=== PATIENT | female | born 1945 | race Caucasian/White ===

== ENCOUNTER 2022-08-13 14:36 | Emergency (ER) | payer MEDICARE, BC, SELFPAY ==
[2022-08-13] VITALS (8 sets, daily range): BP systolic 130–179; BP diastolic 73–106; PULSE 48–60; RESP 12–18; TEMP 36.7; O2SAT 93–100; BMI 24.3
--- NOTE | 2022-08-13 15:57 | ED.GENADULT ---
HPI - General Adult General Time Seen by Provider: 15:58 Date Seen: 08/13/22 Chief complaint: Dizziness/Vertigo Stated complaint: Chest pain Time Seen by Provider: 08/13/22 15:36 Source: patient and RN notes reviewed Mode of arrival: ambulatory Limitations: no limitations History of Present Illness HPI narrative: This 77-year-old female is ambulatory in the ED of her own accord after being referred from clinic with episode of chest pain early this morning. Patient suffers from chronic imbalance/dizziness issues. About 4-5 years ago it started about 4-5 years ago with vertigo. It is more often to chronic imbalance and we will wax and wane. Today she felt more balanced and wondered if it could have to do with her blood pressure or any relation to that. She called the clinic and spoke with the triage nurse. Triage nurse was asking some questions and she did have a little sense of burning chest discomfort this morning for maybe about 5-10 minutes. She had traveled 6 hours by car back from [facility] last week. With those 2 findings the triage nurse requested that she come to the ER. There has been no further pain. No respiratory symptoms. As far as neurologic changes, no visual changes, no numbness tingling weakness, no falls. It is not a spinning sensation currently. She states she has went to Cardiology[facility]. She states she has had multiple workups for this prior. Related Data Home Medications Medication Instructions Recorded Confirmed No Known Home Medications 08/13/22 08/13/22 Allergies Allergy/AdvReac Type Severity Reaction Status Date / Time No Known Drug Allergies Allergy Verified 08/13/22 14:44 Review of Systems Status of ROS: Reports: 10 or more systems reviewed and unremarkable except as noted in History and below PFSH PFS Social History Smoking Status: Never smoker Do you use any of these nicotine containing products: None Second hand tobacco smoke exposure: No How often do you have a drink containing alcohol: 4 or more times a week AUDIT-C Alcohol total score: 4 Non-prescribed substance use: denies use Exam Const: Vital Signs, click to edit/add: Vital Signs - 24 hr 08/13/22 14:39 08/13/22 15:44 08/13/22 16:20 Temperature 98.0 F Pulse Rate [Pulse Oximeter] 60 54 L Respiratory Rate 18 Blood Pressure [Le ft Upper Arm] 154/84 H Blood Pressure [Ri ght Upper Arm] 179/83 H Pulse Oximetry 100 98 96 Oxygen Delivery Me thod Room Air Room Air Documenting provider has reviewed patient's vital signs: yes Common normals: no apparent distress, average body habitus, oriented x3, no limitations, healthy appearing, alert and well nourished General appearance: cooperative, comfortable and well kempt HENMT: Common normals: normocephalic, head/scalp atraumatic, hearing grossly normal bilaterally, external ears normal, EAC's normal, TM's normal bilaterally, external nose normal, nasal mucous membranes and turbinates normal, moist oral mucous membranes, oropharynx normal, dentition normal and gingiva normal Head and scalp: normocephalic and atraumatic Nose: external nose normal and nasal mucous membranes and turbinates normal External ear: external ears normal External auditory canal: EAC's normal Tympanic membrane: TM's normal bilaterally Eye: Common normals: PERRL, EOMs intact bilaterally, conjunctivae normal and no scleral icterus Conjunctiva: conjunctiva(e) normal Pupil: PERRL Neck & C-Spine: Common normals: full ROM, no lymphadenopathy, supple, no meningeal signs, no JVD, thyroid normal and no carotid bruits Thyroid: thyroid normal Resp: Common normals: normal respiratory effort, no retractions, no use of accessory muscles and clear to auscultation bilaterally Auscultation: clear to auscultation bilaterally Cardio: Common normals: no JVD, regular rate, regular rhythm, S1 normal heart sound, S2 normal heart sound, no gallops, no clicks, no murmurs and no rub Rate: regular rate Rhythm: regular rhythm Heart sounds: S1 normal and S2 normal GI: Common normals: Normal to inspection, nondistended, normoactive bowel sounds present, soft to palpation, non-tender, no hepatosplenomegaly and no masses Palpation: soft and no hepatosplenomegaly Extremity: Common normals: normal to inspection, full ROM, normal capillary refill, no joint enlargement, no clubbing, cyanosis or edema, no calf tenderness and no pedal edema Neuro: Julius Coma Scale: document GCS findings [place] coma scale eye opening: Spontaneous (4) Julius coma scale verbal response: Orientated (5) Julius coma scale motor response: Obey commands (6) [place] coma scale total score: 15 Common normals: oriented x3, CN's II-XII intact bilaterally, moves all extremities, no focal motor deficits, no sensory deficits noted and gait normal Sensorium/orientation: alert Meningeal signs: no meningeal signs Coordination/balance: [id number] test normal Speech: speech normal Coordination: [id number] test normal Psych: Appearance: well kempt Course Course Hospital Course: Did discuss with patient that we will certainly do a troponin and D-dimer. She understands if the D-dimer is elevated to need chest CT PE protocol. Otherwise will do other basic blood work. As far as her chronic dizziness/imbalance, there is nothing new or focal about her neurologic exam. Do not feel that there is anything beneficial to add in workup in the ER today. Reevaluation(s) Reevaluation #1: Reviewed with patient that her laboratory analysis as very reassuring. D-dimer and troponin are normal. Given that her pain happened hours ago and was brief this morning, has not reoccurred. I think she is fine to follow up outpatient. Time: 18:10 Vital Signs Vital signs: Initial Vital Signs Temperature 98.0 F 08/13/22 14:39 Temperature Source Temporal Artery Scan 08/13/22 14:39 Pulse Rate 60 08/13/22 14:39 Respiratory Rate 18 08/13/22 14:39 Blood Pressure 179/83 H 08/13/22 14:39 Blood Pressure Mean 115 08/13/22 14:39 Blood Pressure Position Sitting 08/13/22 14:39 Pulse Oximetry 100 08/13/22 14:39 Oxygen Delivery Method 08/13/22 14:39 Vital Signs Temperature 98.0 F 08/13/22 14:39 Pulse Rate 60 08/13/22 14:39 Respiratory Rate 18 08/13/22 14:39 Blood Pressure 179/83 H 08/13/22 14:39 Pulse Oximetry 100 08/13/22 14:39 Oxygen Delivery Method 08/13/22 14:39 Temperature 98.0 F 08/13/22 14:39 Pulse Rate 54 L 08/13/22 15:44 Respiratory Rate 18 08/13/22 14:39 Blood Pressure 154/84 H 08/13/22 15:44 Pulse Oximetry 96 08/13/22 16:20 Oxygen Delivery Method 08/13/22 15:44 Medical Decision Making Lab Data Lab results reviewed: Yes I reviewed the patient's lab results Labs: Lab Results 08/13/22 08/13/22 08/13/22 Range/Units 16:20 16:20 16:20 WBC 4.71 (4.50-11.00) K/uL RBC 4.67 (4.00-5.20) m/uL Hgb 15.1 (12.0-16.0) gm/dL Hct 44.8 (33.0-51.0) % MCV 96 (80-100) fL MCH 32 (26-34) pg MCHC 34 (32-36) gm/dL RDW Coeff of [place] 11.8 (11.5-15.5) % Plt Count 278 (140-440) K/uL Neut % (Auto) 75.1 H (42.0-72.0) % Lymph % (Auto) 16.3 L (20-44) % Barton % (Auto) 7.4 (0.0-11.0) % Eos % (Auto) 0.8 (0.0-7.0) % Baso % (Auto) 0.2 (0.0-3.0) % Neut # (Auto) 3.50 (1.7-7.0) K/uL Lymph # (Auto) 0.80 L (0.90-2.90) K/uL Barton # (Auto) 0.30 (0.00-0.90) K/UL Eos # (Auto) 0.04 (0.00-0.50) K/uL Baso # (Auto) 0.01 (0.00-0.30) K/uL Abs Immat Gran (auto) 0.01 (0.00-0.30) K/uL D-Dimer Quant (PE/DVT) 0.32 (0.00-0.50) ug/ml Sodium 138 (135-149) mmol/L Potassium 4.3 (3.6-5.1) mmol/L Chloride 105 (96-114) mmol/L Carbon Dioxide 24 (20-32) mmol/L BUN 15 (7-30) mg/dL Creatinine 0.6 (0.5-1.5) mg/dL Estimated Creat Clear 48.28 Estimated GFR 93 ml/min Glucose 95 (60-115) mg/dL Calcium 9.3 (8.4-10.6) mg/dL Magnesium 2.1 (1.5-2.6) mg/dL Total Bilirubin 0.6 (0.1-1.5) mg/dL AST 28 (12-35) U/L ALT 18 (4-35) U/L Alkaline Phosphatase 77 (40-150) U/L C-Reactive Protein < 0.5 L (0.5-1.0) mg/dL NT-Pro-B Natriuret Pep 178 (0-450) PG/mL Total Protein 7.0 (6.0-8.3) g/dL Albumin 4.4 (3.3-5.0) g/dL POC Troponin I (0.01-0.04) ng/ml 08/13/22 Range/Units 16:20 WBC (4.50-11.00) K/uL RBC (4.00-5.20) m/uL Hgb (12.0-16.0) gm/dL Hct (33.0-51.0) % MCV (80-100) fL MCH (26-34) pg MCHC (32-36) gm/dL RDW Coeff of Devon (11.5-15.5) % Plt Count (140-440) K/uL Neut % (Auto) (42.0-72.0) % Lymph % (Auto) (20-44) % Barton % (Auto) (0.0-11.0) % Eos % (Auto) (0.0-7.0) % Baso % (Auto) (0.0-3.0) % Neut # (Auto) (1.7-7.0) K/uL Lymph # (Auto) (0.90-2.90) K/uL Barton # (Auto) (0.00-0.90) K/UL Eos # (Auto) (0.00-0.50) K/uL Baso # (Auto) (0.00-0.30) K/uL Abs Immat Gran (auto) (0.00-0.30) K/uL D-Dimer Quant (PE/DVT) (0.00-0.50) ug/ml Sodium (135-149) mmol/L Potassium (3.6-5.1) mmol/L Chloride (96-114) mmol/L Carbon Dioxide (20-32) mmol/L BUN (7-30) mg/dL Creatinine (0.5-1.5) mg/dL Estimated Creat Clear Estimated GFR ml/min Glucose (60-115) mg/dL Calcium (8.4-10.6) mg/dL Magnesium (1.5-2.6) mg/dL Total Bilirubin (0.1-1.5) mg/dL AST (12-35) U/L ALT (4-35) U/L Alkaline Phosphatase (40-150) U/L C-Reactive Protein (0.5-1.0) mg/dL NT-Pro-B Natriuret Pep (0-450) PG/mL Total Protein (6.0-8.3) g/dL Albumin (3.3-5.0) g/dL POC Troponin I 0.00 L (0.01-0.04) ng/ml Imaging Data Chest x-ray: Attestation: I have reviewed the pertinent imaging results. My impression: My preliminary review, I see no acute cardiopulmonary abnormality on this portable chest x-ray. Radiologist's impression: Patient: EVANS MENSAH Facility:?[facility] Patient ID:?[id number] Site Patient ID:?[id number]. Site :?[id number] Study:?XRay Chest 1 VIEW PORTABLE-08/13/2022 4:48:02 PM Ordering Physician:Kirill Camacho Final Report: INDICATION: Chest pain. TECHNIQUE: Chest 1 views. COMPARISON: 03/27/2014. FINDINGS: Cardiovascular and mediastinum: Normal heart size. Tortuous and atherosclerotic thoracic aorta. Lungs and pleural spaces: Lungs are clear. No consolidation, pleural effusion, or pneumothorax. Unchanged calcified granuloma in the right midlung Bones and soft tissues: No significant findings. IMPRESSION: No evidence of an acute pulmonary process. Dictated by Chuy Astorga MD @ 08/13/2022 5:42:40 PM (Electronic Signature) ECG Data Attestation: I personally reviewed and interpreted this ECG as follows: (Sinus bradycardia, 53 beats per minute. Incomplete right bundle branch block. QT corrected 437 milliseconds.) Discharge Plan Discharge Clinical Impression: Discomfort in chest Condition: Stable Instructions: Chest Pain (ED) Additional Instructions: I a request that she get a follow-up appointment with your primary care provider as soon as you are able to, preferably within the next week. Review this brief episode of chest discomfort. You can further discuss your chronic dizziness/imbalance with him as well. If you have not done any physical therapy recently for your dizziness/balance, would consider trying that again. Otherwise, should you develop return of chest pain, have any difficulty breathing/shortness of breath, have further concerns or issues in the interim, please seek re-evaluation in the ER. Activity Level: Activity as Tolerated Discharge Diet: Regular Prescriptions: No Action No Known Home Medications Follow Up/Referrals: Amber Lopez MD [Primary Care Provider] - Stand Alone Forms: [facility] Info Instructions
--- NOTE | 2022-08-13 16:10 | CRLHL7_ITS ---
For Patients: As a result of the Cures Act, medical imaging exams and procedure reports are released immediately into your electronic medical record. You may view this report before your referring provider. If you have questions, please contact your health care provider. INDICATION: Chest pain. TECHNIQUE: Chest 1 views. COMPARISON: 03/27/2014. FINDINGS: Cardiovascular and mediastinum: Normal heart size. Tortuous and atherosclerotic thoracic aorta. Lungs and pleural spaces: Lungs are clear. No consolidation, pleural effusion, or pneumothorax. Unchanged calcified granuloma in the right midlung Bones and soft tissues: No significant findings. IMPRESSION: No evidence of an acute pulmonary process. Dictated by Chuy Astorga MD @ 08/13/2022 5:42:40 PM (Electronically Signed)
[2022-08-13 16:40] LABS: Basophils Absolute Auto 0.01 K/uL (0.00-0.30); Basophils Percent Auto 0.2 % (0.0-3.0); Eosinophils Absolute Auto 0.04 K/uL (0.00-0.50); Eosinophils Percent Auto 0.8 % (0.0-7.0); Hematocrit 44.8 % (33.0-51.0); Hemoglobin* 15.1 gm/dL (12.0-16.0); Immature Granulocytes Abs Auto 0.01 K/uL (0.00-0.30); Lymphocytes Percent Auto 16.3 % (20-44); Mean Corpuscular HGB Conc 34 gm/dL (32-36); Mean Corpuscular Hemoglobin 32 pg (26-34); Mean Corpuscular Volume 96 fL (80-100); Monocytes Percent Auto 7.4 % (0.0-11.0); Neutrophils Percent Auto 75.1 % (42.0-72.0); Platelet Count* 278 K/uL (140-440); RDW Coefficient of Variation % 11.8 % (11.5-15.5); Red Blood Count 4.67 m/uL (4.00-5.20); White Blood Count* 4.71 K/uL (4.50-11.00)
[2022-08-13 17:00] LABS: D Dimer Quantitative* 0.32 ug/ml (0.00-0.50)
[2022-08-13 17:02] LABS: Albumin* 4.4 g/dL (3.3-5.0); Chloride* 105 mmol/L (96-114)
[2022-08-13 17:03] LABS: Potassium* 4.3 mmol/L (3.6-5.1); Sodium* 138 mmol/L (135-149)
[2022-08-13 17:05] LABS: Bilirubin Total* 0.6 mg/dL (0.1-1.5); Carbon Dioxide* 24 mmol/L (20-32); Creatinine* 0.6 mg/dL (0.5-1.5); Est. Creatinine Clearance* 48.28; Estimated Glomerular Filt Rate 93 ml/min
[2022-08-13 17:06] LABS: Alanine Aminotransferase* 18 U/L (4-35); Alkaline Phosphatase* 77 U/L (40-150); Aspartate Amino Transferase* 28 U/L (12-35); Blood Urea Nitrogen* 15 mg/dL (7-30)
[2022-08-13 17:07] LABS: Calcium* 9.3 mg/dL (8.4-10.6); Glucose* 95 mg/dL (60-115); Magnesium* 2.1 mg/dL (1.5-2.6); Slide Review Reflex No
[2022-08-13 17:15] LABS: NT Pro B Type NatriureticPept* 178 PG/mL (0-450)
[2022-08-13 17:29] LABS: C Reactive Protein* < 0.5 mg/dL (0.5-1.0)
== END 2022-08-13 18:26 | disposition home or self-care (01) ==
PROVIDERS: Emergency Provider Family Medicine; PCP Family Medicine
DX: R07.9 Chest pain, unspecified (principal); R42 Dizziness and giddiness; R26.89 Other abnormalities of gait and mobility
CPT/HCPCS: 36415; 71045; 80053; 83735; 83880; 84484; 85025; 85379; 86140; 93005; 94761; 99284

== ENCOUNTER 2024-11-16 14:22 | Emergency (ER) | payer MEDICARE, BC, SELFPAY ==
[2024-11-16] VITALS (10 sets, daily range): BP systolic 180–196; BP diastolic 78–101; PULSE 56–67; RESP 18; TEMP 36.3; O2SAT 91–97
--- NOTE | 2024-11-16 15:05 | CRLHL7_ITS ---
For Patients: As a result of the Century Cures Act, medical imaging exams and procedure reports are released immediately into your electronic medical record. You may view this report before your referring provider. If you have questions, please contact your health care provider. INDICATION: Headache. TECHNIQUE: CTA head with contrast bolus tracking, 3D angiographic rendering using maximum intensity projection (MIP) and images permanently archived. FINDINGS: There is scattered intracranial atherosclerotic disease. There is normal opacification of the intracranial vasculature. There is no large vessel occlusion. No aneurysm is identified. IMPRESSION: Unremarkable head CTA. Please note that all CT scans at this facility use dose modulation, iterative reconstruction, and/or weight-based dosing when appropriate to reduce radiation dose to as low as reasonably achievable. Dictated by Janes Mcknight MD @ 11/17/2024 6:21:54 AM (Electronically Signed)
--- NOTE | 2024-11-16 15:05 | CRLHL7_ITS ---
For Patients: As a result of the Century Cures Act, medical imaging exams and procedure reports are released immediately into your electronic medical record. You may view this report before your referring provider. If you have questions, please contact your health care provider. INDICATION: Headache. TECHNIQUE: CTA neck with contrast bolus tracking, 3D angiographic rendering using maximum intensity projection (MIP) and images permanently archived. FINDINGS: There is minor carotid atherosclerosis. The internal carotid arteries are tortuous and redundant and contain areas of ectasia and beaded appearance consistent with fibromuscular dysplasia. There is no significant carotid artery stenosis or dissection. 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 There is no significant left vertebral artery stenosis or dissection; the left vertebral artery is markedly dominant. The soft tissues of the neck are within normal limits. Advanced degenerative changes are noted in the cervical spine. IMPRESSION: No significant carotid or vertebral artery stenosis or dissection (with exception of diminutive right vertebral artery that is functionally occluded) Please note that all CT scans at this facility use dose modulation, iterative reconstruction, and/or weight-based dosing when appropriate to reduce radiation dose to as low as reasonably achievable. Dictated by Janes Mcknight MD @ 11/17/2024 6:27:57 AM (Electronically Signed)
--- NOTE | 2024-11-16 15:05 | CRLHL7_ITS ---
For Patients: As a result of the Century Cures Act, medical imaging exams and procedure reports are released immediately into your electronic medical record. You may view this report before your referring provider. If you have questions, please contact your health care provider. TECHNIQUE: Multiplanar CT examination of the head was performed without the use of intravenous contrast. INDICATION: Occipital headache. COMPARISON: MR brain 05/30/2019. 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 No loss of garcia-white differentiation to suggest recent territorial infarct. No intracranial hemorrhage, abnormal extra-axial fluid collection, hydrocephalus or midline shift. The ventricles and cerebral sulci are normal in caliber. The basal cisterns are patent. The paranasal sinuses and mastoid air cells remain clear. The orbits and calvarium are unremarkable. The cerebellar tonsils are normal position. IMPRESSION: 1. No acute intracranial findings. 2. 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 Please note that all CT scans at this facility use dose modulation, iterative reconstruction, and/or weight-based dosing when appropriate to reduce radiation dose to as low as reasonably achievable. Dictated by Santiago Morgan MD @ 11/16/2024 4:31:49 PM (Electronically Signed)
[2024-11-16 15:13] LABS: Troponin, Point-of-Care* 0.01 ng/ml (0.01-0.04)
[2024-11-16 15:15] LABS: Lactate* 1.5 mmol/L (0.5-1.9)
[2024-11-16 15:16] LABS: Basophils Absolute Auto 0.02 K/uL (0.00-0.30); Basophils Percent Auto 0.4 % (0.0-3.0); Eosinophils Absolute Auto 0.06 K/uL (0.00-0.50); Eosinophils Percent Auto 1.1 % (0.0-7.0); Hemoglobin* 15.5 gm/dL (12.0-16.0); Immature Granulocytes Abs Auto 0.03 K/uL (0.00-0.30); Immature Granulocytes Pct Auto 0.6 %; Lymphocytes Absolute Auto 1.11 K/uL (0.90-2.90); Lymphocytes Percent Auto 20.7 % (20-44); Mean Corpuscular HGB Conc 34 gm/dL (32-36); Mean Corpuscular Hemoglobin 32 pg (26-34); Mean Corpuscular Volume 95 fL (80-100); Neutrophils Absolute Auto 3.66 K/uL (1.7-7.0); Neutrophils Percent Auto 68.2 % (42.0-72.0); Platelet Count* 277 K/uL (140-440); RDW Coefficient of Variation % 12.1 % (11.5-15.5); Red Blood Count 4.83 m/uL (4.00-5.20); White Blood Count* 5.36 K/uL (4.50-11.00)
[2024-11-16 15:29] LABS: Chloride* 104 mmol/L (96-114); Potassium* 4.1 mmol/L (3.6-5.1); Sodium* 137 mmol/L (135-149)
[2024-11-16 15:31] LABS: Slide Review Reflex No
[2024-11-16 15:32] LABS: Anion Gap 9 mEq/L (7-15); Carbon Dioxide* 24 mmol/L (20-32); Creatinine* 0.6 mg/dL (0.5-1.5); Estimated Glomerular Filt Rate 92 ml/min
[2024-11-16 15:33] LABS: Blood Urea Nitrogen* 21 mg/dL (7-30); Calcium* 9.4 mg/dL (8.4-10.6); Glucose* 91 mg/dL (60-115)
--- NOTE | 2024-11-16 15:35 | ED.GENADULT ---
HPI - General Adult General Chief complaint: Hypertension Stated complaint: pain in neck and rt jaw down rt arm Time Seen by Provider: 11/16/24 14:48 Source: patient Mode of arrival: ambulatory Limitations: no limitations History of Present Illness HPI narrative: 79-year-old female presenting today with pain in the right neck and shoulder area. Patient states she was at home doing her usual activities when she felt an intense and sharp pain in the right neck, located in the back of the head and that pain radiated into the right jaw down into the right shoulder. Patient denies of vertigo, nausea, vomiting. She denies a headache aside from the pain in the back of the head, at the base of the head and neck. She denies confusion, difficulty in word finding or changes in her speech. She denies difficulty with moving any extremity, she denies motor weakness or sensation deficits. She states that the pain started approximately an hour and half ago. She took some Advil and it did not help. The pain is sharp and is not made worse with movement. She is not short of breath. She denies pain like this in the past. Nothing seems to make the pain better. She denies changes in her vision or ringing in her ears. Related Data Home Medications ?Medication ?Instructions ?Recorded ?Confirmed rosuvastatin 5 mg tablet 5 mg PO QPM 11/16/24 11/16/24 Previous Rx's ?Medication ?Instructions ?Recorded gabapentin 100 mg capsule 100 mg PO DAILY #10 caps 11/16/24 Allergies Allergy/AdvReac Type Severity Reaction Status Date / Time No Known Drug Allergies Allergy Verified 11/16/24 14:32 Review of Systems Status of ROS: Reports: 10 or more systems reviewed and unremarkable except as noted in History and below [facility] Social History Smoking Status: Never smoker Do you use any of these nicotine containing products: None Second hand tobacco smoke exposure: No How often do you have a drink containing alcohol: 4 or more times a week AUDIT-C Alcohol total score: 4 Non-prescribed substance use: denies use Exam Narrative: Exam Narrative: Well-nourished well-developed patient in no acute distress. Alert and oriented. Answers questions appropriately. Mood and affect are appropriate. Thoughts are goal oriented and rational. No tangential or magical thinking noted. Patient speaks in full sentences without needing to catch her breath. HEENT: Normocephalic atraumatic. Pupils are equally round reactive to light. Extraocular muscles are intact. Conjunctivae are moist without any icterus noted. Moist mucous membranes. Posterior pharynx is normal. Neck is soft without any lymphadenopathy or thyromegaly. No masses are appreciated. She has no tenderness to palpation over the trapezius or deltoid. She has no tenderness with rotation at the neck against force. She states that the pain is present when she has to do these things but does not change in intensity. She has no tenderness over the cervical spine. TMs are clear bilaterally. Her pain is not changed with movement at the shoulder. Or pain is not changed with rotation of the cervical spine, flexion or extension. Cardiovascular: Heart is regular rate and rhythm S1 and S2 are present without any murmurs. Lungs: Clear to auscultation bilaterally no wheezes rhonchi or rales are appreciated. Patient takes deep breaths without any discomfort. Abdomen: Soft and nontender nondistended with normal bowel sounds. Extremities: Bilateral lower extremities are without edema. Skin: Well perfused without any obvious rashes. Const: Vital Signs, click to edit/add: Vital Signs - 24 hr 11/16/24 14:27 Temperature 97.4 F L Pulse Rate [Pulse Oximeter] 67 Respiratory Rate 18 Blood Pressure [Ri ght Upper Arm] 196/78 H Pulse Oximetry 93 Oxygen Delivery Me thod Room Air Course Course ED Course: Differential diagnosis includes musculoskeletal pain, occipital headache, vertebral artery dissection, acute coronary syndrome, occipital intracranial hemorrhage. EKG, read by me, left axis deviation and an incomplete right bundle branch block, pulse of 59. CBCs normal. Chemistries are normal. Lactate is normal. Normal troponin. Head CT does not show any acute findings. She does have a right-sided cystic lesion which is not new. Coronary port of the head and neck CTA showed no evidence of vertebral artery dissection. Repeat troponin is pending. Discussed CT findings with neurologist at [facility], Dr. Webb, who feels that the cystic lesion would not be contributing to the symptoms and symptoms are potentially secondary to something like occipital neuralgia. Vital Signs Vital signs: Initial Vital Signs Temperature 97.4 F L 11/16/24 14:27 Temperature Source Temporal Artery Scan 11/16/24 14:27 Pulse Rate 67 11/16/24 14:27 Respiratory Rate 18 11/16/24 14:27 Blood Pressure 196/78 H 11/16/24 14:27 Blood Pressure Mean 117 H 11/16/24 14:27 Blood Pressure Position Sitting 11/16/24 14:27 Pulse Oximetry 93 11/16/24 14:27 Oxygen Delivery Method Room Air 11/16/24 14:27 Vital Signs Temperature 97.4 F L 11/16/24 14:27 Pulse Rate 67 11/16/24 14:27 Respiratory Rate 18 11/16/24 14:27 Blood Pressure 196/78 H 11/16/24 14:27 Pulse Oximetry 93 11/16/24 14:27 Oxygen Delivery Method Room Air 11/16/24 14:27 Temperature 97.4 F L 11/16/24 14:27 Pulse Rate 67 11/16/24 14:27 Respiratory Rate 18 11/16/24 14:27 Blood Pressure 196/78 H 11/16/24 14:27 Pulse Oximetry 93 11/16/24 14:27 Oxygen Delivery Method Room Air 11/16/24 14:27 Medical Decision Making MDM Narrative Medical decision making narrative: 79 year-old female with pain at the base of the skull, neck area. Concerns for occipital neuralgia. We discussed gabapentin treatment, patient hesitant to take any medications. Therefore the smallest dose was prescribed. Lab Data Lab results reviewed: Yes I reviewed the patient's lab results Labs: Lab Results 11/16/24 Range/Units 14:58 WBC 5.36 (4.50-11.00) K/uL RBC 4.83 (4.00-5.20) m/uL Hgb 15.5 (12.0-16.0) gm/dL Hct 46.0 (33.0-51.0) % MCV 95 (80-100) fL MCH 32 (26-34) pg MCHC 34 (32-36) gm/dL RDW Coeff of [place] 12.1 (11.5-15.5) % Plt Count 277 (140-440) K/uL Neut % (Auto) 68.2 (42.0-72.0) % Lymph % (Auto) 20.7 (20-44) % [place] % (Auto) 9.0 (0.0-11.0) % Eos % (Auto) 1.1 (0.0-7.0) % Baso % (Auto) 0.4 (0.0-3.0) % Neut # (Auto) 3.66 (1.7-7.0) K/uL Lymph # (Auto) 1.11 (0.90-2.90) K/uL [place] # (Auto) 0.50 (0.00-0.90) K/UL Eos # (Auto) 0.06 (0.00-0.50) K/uL Baso # (Auto) 0.02 (0.00-0.30) K/uL Abs Immat Gran (auto) 0.03 (0.00-0.30) K/uL Imm/Tot Granulo (auto) 0.6 % Sodium 137 (135-149) mmol/L Potassium 4.1 (3.6-5.1) mmol/L Chloride 104 (96-114) mmol/L Carbon Dioxide 24 (20-32) mmol/L Anion Gap 9 (7-15) mEq/L BUN 21 (7-30) mg/dL Creatinine 0.6 (0.5-1.5) mg/dL Estimated GFR 92 ml/min Glucose 91 (60-115) mg/dL Lactate 1.5 (0.5-1.9) mmol/L Calcium 9.4 (8.4-10.6) mg/dL Troponin I < 0.01 L (0.01-0.04) ng/mL POC Troponin I 0.01 (0.01-0.04) ng/ml Imaging Data CT scan - head: Attestation: I have reviewed the pertinent imaging results. Radiologist's impression: TECHNIQUE: Multiplanar CT examination of the head was performed without the use of intravenous contrast. INDICATION: Occipital headache. COMPARISON: MR brain 05/30/2019. 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 No loss of garcia-white differentiation to suggest recent territorial infarct. No intracranial hemorrhage, abnormal extra-axial fluid collection, hydrocephalus or midline shift. The ventricles and cerebral sulci are normal in caliber. The basal cisterns are patent. The paranasal sinuses and mastoid air cells remain clear. The orbits and calvarium are unremarkable. The cerebellar tonsils are normal position. IMPRESSION: 1. No acute intracranial findings. 2. 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 ECG Data Attestation: I personally reviewed and interpreted this ECG as follows: Discharge Plan Discharge Clinical Impression: Occipital neuralgia Patient Disposition: Home, Self-Care Condition: Stable Additional Instructions: Can treat discomfort with ibuprofen, Tylenol, ice or heat. Do not apply ice or heat directly to the skin into not use ice or heat more than 20 minutes at a time. If this does not provide relief you can try taking gabapentin. This medicine can be increased in dosage if needed. Do not increase the dose until you speak to your primary care provider. Prescriptions: New gabapentin 100 mg capsule 100 mg PO DAILY Qty: 10 0RF No Action rosuvastatin 5 mg tablet 5 mg PO QPM Follow Up/Referrals: Amber Lopez MD [Staff Physician] - Stand Alone Forms: Intacct Info Instructions
[2024-11-16 15:45] LABS: Troponin I* < 0.01 ng/mL (0.01-0.04)
--- OUTSIDE RECORDS SUMMARY | 2024-11-16 15:54 | XMS_ITS | Clinical Summary ---
Author Organization [facility] Address [place], [place] [address] Care Team Providers Care Hazardous Waste Remover Name Role Phone Tristian Jerez MD Primary Care Provider Allergies Active Allergy Reactions Criticality Noted Date Comments Escitalopram Hallucinations 03/06/2024 Medications multivitamin (MVI) tablet Take 1 tablet by mouth once daily. 0 02/20/20 13 Active omega-3 fatty acids-vitamin E (FISH OIL) 1,000 mg cap Take by mouth. 0 02/20/20 13 Active famotidine (PEPCID) 20 mg tabletIndications: Epigastric pain,Nausea,Vertig o Take 1 Tablet (20 mg) by mouth two times daily. 60 Tablet 1 04/17/20 24 Active polyethylene glycol-electrolyte (GOLYTELY) 236-22.74-6.74 -5.86 gram suspensionIndicati ons:Diarrhea, unspecified type Drink 2 liters (half the bottle) the day before colonoscopy and 2 liters (remaining prep) 6 hours prior to colonoscopy appointment. 4000 mL 09/15/20 24 Active rosuvastatin (CRESTOR) 5 mg tabletIndications: Hyperlipidemia, unspecified hyperlipidemia type Take 1 Tablet (5 mg) by mouth at bedtime. 90 Tablet 3 09/29/20 24 Active Active Problems Problem Noted Date Diagnosed Date Colon polyp 09/26/2024 Overview (09/26/2024): Colonoscopy 09/2024 SSA, repeat in 5 years Vertigo 07/13/2020 Ascending aortic aneurysm 04/02/2017 Family history of thoracic aortic aneurysm 07/25 Hyperlipidemia Resolved Problems Problem Noted Date Diagnosed Date Resolved Date Nausea 08/08/2017 07/13/2020 Routine adult health maintenance 08/02/2015 07/13/2020 Overview (08/02/2015): Colonoscopy 07/2015 diverticulosis repeat in 10 years Encounters Date Type Department Care Team Description 09/24/2024 Orders Only [facility] [address] [place] [address] Tristian Jerez MD 1 scan: (1-Ord) [facility] 09/24/2024 Lab Requisition [facility] [phone] Rob Jay MD 09/23/2024 Orders Only [facility] Scanner 1 scan: (1-Ord) [facility], UPPER GI ENDOSCOPY, 09/23/2024 09/18/2024 Telephone [facility] [address] [place] [address] Tristian Jerez MD Form (preop) 09/16/2024 Telephone [facility] [address] [place] [address] Rob Jay MD Questions (PROCEDURE) 09/16/2024 Telephone [facility] [address] [place] [address] Rob Jay MD Appointment Reminder (EGD & colonoscopy on 09/23/2024 at [facility]) 09/15/2024 2:55 PM ELECT EQUIP MAINT ENG Preop Visit [facility] [address] [place] [address] Tristian Jerez MD Preoperative Exam (DOS: 09/23/2024, EGD, [facility], Dr. Jay); Diarrhea (Started a couple weeks ago) 09/15/2024 Telephone [facility] [address] [place] [address] Rob Jay MD Need Meds 09/15/2024 Travel 09/10/2024 Travel from Last 3 Months Immunizations Name Administration Dates Next Due COVID-19 vaccine (Jane-J&J) [place] M[place]O 1 Hepatitis A (Adult) 03/05/2008,07/22/2007 Hepatitis B (Adult) 03/05/2008,09/05/2007,2006 Pneumococcal Poly,23-Valent (Pneumovax) 07/12/20 16 Pneumococcal conj 13-Valent (Prevnar 13) 015 Td (Age >=7 Years) 03/07/2006 Tdap 03/06/2012 Zoster (Zostavax-ZVL, live) 08/02/2014 Family History Medical History Relation Name Comments Cancer-breast Neg. 1 Cancer-ovarian Neg. 2 Cancer-colon Neg. 3 Diabetes Neg. 4 Heart Disease Neg. 5 Other Son discection of a scending aorta Anesthesia Problem No Family History Relation Name Status Comments Neg. 1 Neg. 2 Neg. 3 Neg. 4 Neg. 5 Son Social History Tobacco Use Types Packs/Day Years Used Date Smoking Tobacco: Never Smokeless Tobacco: Never Tobacco Cessation:Counseling Given: No Alcohol Use Standard Drinks/Week Comments Yes 7 (1 standard drink = 0.6 oz pure alcohol) ONE GLASS OF WINE PER DAY at bedtime C Utilities Answer Date Recorded Do you have trouble paying f or utilities (for example, heat, electricity, water, phone)? Yes 02/25/2024 PHQ-2 Answer Date Recorded PHQ-2 TOTAL SCORE 0 08/24/2021 Social Connections Answer Date Recorded Do you often feel lonely or isolated from those around you? 0 02/25/2024 Financial Resource Strain Answer Date R ecorded Difficulty of Paying Living Expenses 3 02/25/2024 Difficulty of Paying Living Expenses Not on file 02/25/2024 Food Insecurity Answer Date Recorded Do you worry your food will run out before you are able to buy more? 1 02/25/2024 Transportation Needs Answer Date Record ed Does lack of transportation keep you from medica l appointments? 1 02/25/2024 Does lack of transportation keep you from work, meetings or getting things that you need? 1 02/25/2024 Housing Stability Answer Date Recorded What is your housing situation today? 1 02/25/2024 Comments No Sex and Gender Information Value Date Recorded Sex Assigned at Not on file Legal Sex Female 5:58 AM ELECT EQUIP MAINT ENG Gender Identity Not on file Sexual Orientation Not on file Obstetrics History Last Filed Vital Signs Vital Sign Reading Time Taken Comments Blood Pressure 137/88 09/15/2024 2:58 PM ELECT EQUIP MAINT ENG Pulse 58 09/15/2024 2:58 PM ELECT EQUIP MAINT ENG Temperature 36.5 C (97.7 F) 06/05/2022 1:58 PM CDT Respiratory Rate 18 01/31/2023 11:50 AM CDT Oxygen Saturation 97% 09/15/2024 2:58 PM ELECT EQUIP MAINT ENG Inhaled Oxygen Concentration - - Weight 72.6 kg (160 lb) 06/05/2022 2:47 PM CDT Height 172.7 cm (5' 8) 01/22/2022 4:47 PM CDT Body Mass Index 24.33 01/22/2022 4:47 PM CDT Plan of Treatment Scheduled Procedures Name Priority Associated Diagnoses Date/Ti me SURGICAL PROCEDURE (TYPE PROCEDURE DESCRIPTION BELOW) Diarrhea, unspecified type Epigastric pain SURGICAL PROCEDURE (TYPE PROCEDURE DESCRIPTION BELOW) Nausea Health Maintenance Due Date Last Done Comments Medicare Wellness for age 65+ 2011 Zoster (shingles) series for age 50+ (2 of 3) 09/27/2014 08/02/2014 RSV vaccine for adults or (1 - 1-dose 75+ series) 2021 Tetanus booster 03/06/2022 03/06/2012, 03/07/2006 Depression screening for age 12+ 08/24/2022 08/24/2021, 12/18/2019, 12/17/2019, Additional history exists BMI (ht and wt on same day) for age 18+ 01/22/2023 01/22/2022 COVID-19 vaccine series ( season) 2024 09/28/2021, 01/21/2021 Influenza for age 65+ 07/12/2024 Tdap Completed 03/06/2012 DEXA/DXA scan for age 65+ Completed 06/10/2015 Hepatitis C screening for ag e 18-79 Completed 06/10/2015 Pneumococcal series for age 50+ Completed 6, 03/11/2015 Procedures Procedure Name Priority Date/Time Associated Diagnosis Comments LAB TRACKING EVENT Routine 09/23/2024 1: 08 PM ELECT EQUIP MAINT ENG PATH TISSUE EXAM Routine 09/23/2024 1:08 PM ELECT EQUIP MAINT ENG COLONOSCOPY DIAGNOSTIC Routine 09/23/2024 12:00 AM ELECT EQUIP MAINT ENG Rectal bleeding SCAN-ENDOSCOPY 09/23/2024 12:00 AM ELECT EQUIP MAINT ENG LIPID PANEL W REFLEX MEASURED LDL Routine 09/15/2024 3:38 PM ELECT EQUIP MAINT ENG TSH WITH REFLEX Routine 09/15/2024 3:38 PM ELECT EQUIP MAINT ENG Acute diarrhea BASIC METABOLIC PANEL Routine 09/15/2024 3:38 PM ELECT EQUIP MAINT ENG Acute diarrhea HEPATIC FUNCTION PANEL Routine 09/15/2024 3:38 PM ELECT EQUIP MAINT ENG Acute diarrhea CBC WITH AUTO DIFFERENTIAL Routine 09/15/2024 3:38 PM ELECT EQUIP MAINT ENG Acute diarrhea XR DXA BONE DENSITY 2 SITES AXIAL Routine 06/10/2015 3:10 PM CDT Osteoporosis ANTI HCV Routine 06/10/2015 2:52 PM CDT Need for hepatitis C screening test from Last 3 Months or Most Recently Relevant to Health Maintenance Results * LAB TRACKING EVENT (09/23/2024 1:08 PM ELECT EQUIP MAINT ENG) Other (Other) Client Collect / Unknown 09/23/2024 1:08 PM ELECT EQUIP MAINT ENG 09/24/2024 5:43 PM ELECT EQUIP MAINT ENG us Rob Jay MD LAB BILL ONLY Final Res ult [facility] [address] [place] [address], * PATH TISSUE EXAM (09/23/2024 1:08 PM ELECT EQUIP MAINT ENG) Case Report Pathology Report Case: [id number] Authorizing Provider: Rob Jay MD Collected: 09/23/2024 1308 Ordering Location: [facility] Received: 09/24/2024 1935 Pathologist: Isiah Meza MD Specimens: A) - Duodenum Biopsy B) - Stomach Biopsy C) - Distal Esophagus Biopsy D) - Colon Biopsy E) - Transverse Colon Polyp 09/25/2024 3:41 PM ELECT EQUIP MAINT ENG [facility] Final Diagnosis A) DUODENUM, BIOPSY: 1. Non-erosive duodenitis, favor peptic or NSAID injury 2. Negative for celiac disease 3. Negative for dysplasia and malignancy B) STOMACH, BIOPSY: 1. Normal gastric antral and body mucosae 2. Negative for Helicobacter C) ESOPHAGUS, DISTAL, BIOPSY: 1. Normal esophageal squamous mucosa 2. Negative for reflux changes and eosinophilic esophagitis 3. Negative for columnar mucosa D) COLON, RANDOM, BIOPSY: 1. Normal colonic mucosa 2. Negative for microscopic, active, and chronic colitis E) COLON, TRANSVERSE, POLYPECTOMY: 1. Sessile serrated adenoma 2. Negative for overt dysplasia 3. Per the colonoscopy report: a. Polyp size: 3 mm b. Resection: Complete c. Retrieval: Complete 09/25/2024 3:41 PM ELECT EQUIP MAINT ENG [facility] Clinical Information The patient is a 79-year-old with epigastric abdominal pain, nausea, and diarrhea who undergoes upper GI endoscopy and colonoscopy. 09/25/2024 3:41 PM ELECT EQUIP MAINT ENG [facility] Gross Description A) Received in formalin are 6 mendez mucosal fragments ranging from 2 mm to 4 mm in greatest dimension, which are entirely submitted in one cassette. It is labeled with the patient's name and designated A, duodenum biopsy. B) Received in formalin are 5 mendez mucosal fragments ranging from 1 mm to 8 mm in greatest dimension, which are entirely submitted in one cassette. It is labeled with the patient's name and designated B, stomach biopsy. C) Received in formalin are 3 mendez mucosal fragments ranging from 2 mm to 4 mm in greatest dimension, which are entirely submitted in one cassette. It is labeled with the patient's name and designated C, distal esophagus biopsy. D) Received in formalin are 6 mendez mucosal fragments ranging from 2 mm to 5 mm in greatest dimension, which are entirely submitted in one cassette. It is labeled with the patient's name and designated D, colon biopsies. E) Received in formalin are 3 mendez mucosal fragments averaging 3 mm in greatest dimension, which are entirely submitted in one cassette. It is labeled with the patient's name and designated E, transverse colon polyp. Derrick Zelaya 09/24/2024 7:53 PM 09/25/2024 3:41 PM ELECT EQUIP MAINT ENG [facility] Microscopic Description The final diagnosis is based on microscopic examination of appropriate sections of all specimens. 09/25/2024 3:41 PM ELECT EQUIP MAINT ENG [facility] Additional Information Interpreted at [facility] - [address], [place] [address] 09/25/2024 3:41 PM ELECT EQUIP MAINT ENG [facility] Other (Duodenum Biopsy) 09/23/2024 1:08 PM ELECT EQUIP MAINT ENG 09/24/2024 7:35 PM ELECT EQUIP MAINT ENG Specimen (specimen) (Stomach Biopsy) 09/23/2024 1:09 PM ELECT EQUIP MAINT ENG 09/24/2024 7:35 PM ELECT EQUIP MAINT ENG Specimen (specimen) (Distal Esophagus Biopsy) 09/23/2024 1:11 PM ELECT EQUIP MAINT ENG 09/24/2024 7:35 PM ELECT EQUIP MAINT ENG Specimen (specimen) (Colon Biopsy) 09/23/2024 1:29 PM ELECT EQUIP MAINT ENG 09/24/2024 7:35 PM ELECT EQUIP MAINT ENG Specimen (specimen) (Transverse Colon Polyp) 09/23/2024 1:32 PM ELECT EQUIP MAINT ENG 09/24/2024 7:35 PM ELECT EQUIP MAINT ENG us Rob Jay MD PATHOLOGY/CYTOLOGY Final Result [facility] [address] [place] [address], [place] * SCAN-ENDOSCOPY (09/23/2024 12:00 AM ELECT EQUIP MAINT ENG) us Scanner OTHER Final Result * COLONOSCOPY DIAGNOSTIC (09/23/2024 12:00 AM ELECT EQUIP MAINT ENG) us Tristian Jerez MD GI PROCEDURE ORD Final Result * TSH WITH REFLEX (09/15/2024 3:38 PM ELECT EQUIP MAINT ENG) TSH W/REFLEX TO FT4 2.13 0.40 - 4.50 mIU/L [facility] Blood BLOOD SPECIMEN / Unknown 09/15/2024 3:38 PM ELECT EQUIP MAINT ENG 09/15/2024 3:39 PM ELECT EQUIP MAINT ENG Narrative [facility] - 09/16/2024 12:12 PM ELECT EQUIP MAINT ENG FASTING:YES FASTING: YES Tristian Jerez MD CHEMISTRY Final Result [facility] [address] [place] [address], [facility] [address] [place] [address] * (ABNORMAL) LIPID PANEL W REFLEX MEASURED LDL (09/15/2024 3:38 PM ELECT EQUIP MAINT ENG) Pathologist [facility] CHOLESTEROL, TOTAL 257(H) <200 mg/dL [facility] HDL CHOLESTEROL 68 > OR = 50 mg/dL [facility] TRIGLYCERIDES 99 <150 mg/dL [facility] LDL-CHOLESTEROL 168(H) mg/dL (calc) [facility] Comment: Reference range: <100 Desirable range <100 mg/dL for primary prevention; <70 mg/dL for patients with CHD or diabetic patients with > or = 2 CHD risk factors. LDL-C is now calculated using the Rob-Nolasco calculation, which is a validated novel method providing better accuracy than the Friedewald equation in the estimation of LDL-C. Rob SS et al. JACQUES. 2013;310(19): 3679-4152 (http://education.PriceArea.[employer]/faq/OOA912) CHOL/HDLC RATIO 3.8 <5.0 (calc) [facility] NON HDL CHOLESTEROL 189(H) <130 mg/dL (calc) [facility] Comment: For patients with diabetes plus 1 major ASCVD risk factor, treating to a non-HDL-C goal of <100 mg/dL (LDL-C of <70 mg/dL) is considered a therapeutic option. 09/15/2024 3:38 PM ELECT EQUIP MAINT ENG 09/15/2024 3:39 PM ELECT EQUIP MAINT ENG Narrative [facility] - 09/16/2024 1:20 PM ELECT EQUIP MAINT ENG FASTING:YES FASTING: YES Tristian Jerez MD CHEMISTRY Final Result [facility] [address] [place] [address], [place] [phone] [facility] [address] [place] [address] * (ABNORMAL) CBC AND DIFFERENTIAL (09/15/2024 3:38 PM ELECT EQUIP MAINT ENG) Pathologist [facility] WHITE BLOOD CELL COUNT 5.4 3.8 - 10.8 Thousand/u L [facility] RED BLOOD CELL COUNT 5.13(H) 3.80 - 5.10 Million/uL [facility] HEMOGLOBIN 16.3(H) 11.7 - 15.5 g/dL [facility] HEMATOCRIT 49.2(H) 35.0 - 45.0 % [facility] MCV 95.9 80.0 - 100.0 fL [facility] MCH 31.8 27.0 - 33.0 pg [facility] MCHC 33.1 32.0 - 36.0 g/dL [facility] Comment: For adults, a slight decrease in the calculated MCHC value (in the range of 30 to 32 g/dL) is most likely not clinically significant; however, it should be interpreted with caution in correlation with other red cell parameters and the patient's clinical condition. RDW 12.0 11.0 - 15.0 % [facility] PLATELET COUNT 323 140 - 400 Thousand/u L [facility] MPV 10.8 7.5 - 12.5 fL [facility] ABSOLUTE NEUTROPHILS 4,066 1,500 - 7,800 cells/uL [facility] ABSOLUTE LYMPHOCYTES 940 850 - 3,900 cells/uL [facility] ABSOLUTE MONOCYTES 351 200 - 950 cells/uL [facility] ABSOLUTE EOSINOPHILS 11(L) 15 - 500 cells/uL [facility] ABSOLUTE BASOPHILS 32 0 - 200 cells/uL [facility] NEUTROPHILS 75.3 % [facility] LYMPHOCYTES 17.4 % [facility] MONOCYTES 6.5 % [facility] EOSINOPHILS 0.2 % [facility] BASOPHILS 0.6 % [facility] Blood BLOOD SPECIMEN / Unknown 09/15/2024 3:38 PM ELECT EQUIP MAINT ENG 09/15/2024 3:39 PM ELECT EQUIP MAINT ENG Narrative [facility] - 09/16/2024 2:50 AM ELECT EQUIP MAINT ENG FASTING:YES FASTING: YES us Tristian Jerez MD HEMATOLOGY Final Result [facility] [facility] [address] [place] [address], [facility] [address] [place] [address] * HEPATIC FUNCTION PANEL (09/15/2024 3:38 PM ELECT EQUIP MAINT ENG) Pathologist [facility] PROTEIN, TOTAL 6.9 6.1 - 8.1 g/dL [facility] ALBUMIN 4.4 3.6 - 5.1 g/dL [facility] GLOBULIN 2.5 1.9 - 3.7 g/dL (calc) [facility] ALBUMIN/GLOBULIN RATIO 1.8 1.0 - 2.5 (calc) [facility] BILIRUBIN, TOTAL 0.8 0.2 - 1.2 mg/dL [facility] BILIRUBIN, DIRECT 0.2 < OR = 0.2 mg/dL [facility] BILIRUBIN, INDIRECT 0.6 0.2 - 1.2 mg/dL (calc) [facility] ALKALINE PHOSPHATASE 80 37 - 153 U/L [facility] AST 14 10 - 35 U/L [facility] ALT 9 6 - 29 U/L [facility] Blood BLOOD SPECIMEN / Unknown 09/15/2024 3:38 PM ELECT EQUIP MAINT ENG 09/15/2024 3:39 PM ELECT EQUIP MAINT ENG Narrative [facility] - 09/16/2024 1:20 PM ELECT EQUIP MAINT ENG FASTING:YES FASTING: YES Tristian Jerez MD CHEMISTRY Final Result [facility] [facility] [address] [place] [address], [place] [phone] [facility] [address] [place] [address] * BASIC METABOLIC PANEL (09/15/2024 3:38 PM ELECT EQUIP MAINT ENG) [facility] GLUCOSE 85 65 - 99 mg/dL [facility] Comment: Fasting reference interval UREA NITROGEN (BUN) 12 7 - 25 mg/dL [facility] CREATININE 0.69 0.60 - 1.00 mg/dL [facility] EGFR 89 > OR = 60 mL/min/1. 73m2 [facility] BUN/CREATININE RATIO SEE NOTE: 6 - 22 (calc) [facility] Comment: Not Reported: BUN and Creatinine are within reference range. SODIUM 140 135 - 146 mmol/L [facility] POTASSIUM 4.1 3.5 - 5.3 mmol/L [facility] CHLORIDE 107 98 - 110 mmol/L [facility] CARBON DIOXIDE 20 20 - 32 mmol/L [facility] ELECTROLYTE BALANCE 13 7 - 17 mmol/L (calc) [facility] CALCIUM 9.8 8.6 - 10.4 mg/dL [facility] Blood BLOOD SPECIMEN / Unknown 09/15/2024 3:38 PM ELECT EQUIP MAINT ENG 09/15/2024 3:39 PM ELECT EQUIP MAINT ENG Narrative [facility] - 09/16/2024 1:20 PM ELECT EQUIP MAINT ENG FASTING:YES FASTING: YES Tristian Jerze MD CHEMISTRY Final Result Performing Organization Address City/[facility]/ZIP Co de Phone Number [employer] [facility] [address] [place] [address], [place] [phone] [facility] [address] [facility] [place] [address] * XR DXA BONE DENSITY 2 SITES (06/10/2015 3:10 PM CDT) Anatomical Region Laterality Modality Spine, HIPS, HIPL, HIPR Other Narrative 06/14/2015 7:17 AM CDT Please see scanned document for results of this study. Tristian Jerez MD DEXA Final Result * ANTI HCV [[id number]] (06/10/2015 2:52 PM CDT) HEPATITIS C ANTIBODY Non-Reacti ve Non-Reacti ve 06/10/2015 9:01 PM CDT [facility] Blood specimen (specimen) BLOOD SPECIMEN / Unknown Venipuncture / Unknown 06/10/2015 2:52 PM CDT 06/10/2015 2:52 PM CDT Narrative [facility] - 06/10/2015 9:01 PM CDT Antibodies to HCV not detected; does not exclude the possibility of exposure to HCV. Tristian Jerez MD SEND OUTS Final Result [facility] [address] [place] [address], [place] from Last 3 Months or Most Recently Relevant to Health Maintenance Insurance MEDICARE PART B HB ONLY MEDICARE PART A HB ONLY [place] HB ONLY [place] BLUE MR PB ONLY Care Teams Hazardous Waste Remover Relationship Specialty Start Date End Date Tristian Jerez MD [address] [place] [address] PCP - General Family Practice 02/26/14
[2024-11-16 18:09] LABS: Troponin I* < 0.01 ng/mL (0.01-0.04)
== END 2024-11-16 18:38 | disposition home or self-care (01) ==
PROVIDERS: Emergency Provider Family Medicine; PCP Family Medicine
DX: M54.81 Occipital neuralgia (principal)
CPT/HCPCS: 36415; 70450; 70496; 70498; 80048; 83605; 84484; 85025; 93005; 94761; 99284; 99285; Q9967

== ENCOUNTER 2025-03-29 12:38 | Outpatient (CLI) | payer MEDICARE, BC, SELFPAY ==
--- NOTE | 2025-03-29 13:00 | CRLHL7_ITS ---
For Patients: As a result of the Century Cures Act, medical imaging exams and procedure reports are released immediately into your electronic medical record. You may view this report before your referring provider. If you have questions, please contact your health care provider. Indication: UPPER AND MID ABD PAIN. NAUSEA. DISCOMFORT Technique: CT Abdomen/Pelvis 79CC ISOVUE 370 intravenous contrast AND WATER Please note that all CT scans at this facility use dose modulation, iterative reconstruction, and/or weight-based dosing when appropriate to reduce radiation dose to as low as reasonably achievable. Comparison: 03/13/2019 Findings: Focal ground-glass density within the right middle lobe measures 1.4 cm. Scarring within both lower lobes. Calcified splenic granulomas. Multiple intrahepatic cysts measure up to 2.0 cm. Gallbladder normal. Normal pancreas. Adrenal glands are within normal limits. Left renal parapelvic cysts. No hydronephrosis. Atherosclerotic changes. No adenopathy. Sigmoid diverticulosis. No diverticulitis. Normal appendix. No bowel obstruction or free air. No free fluid or abscess. Normal uterus, ovaries and bladder. Chronic wedge compression fracture L1. Impression: Chronic benign intrahepatic cysts. 1.4 cm focal ground-glass density right middle lobe. Follow-up CT chest in 1 year recommended. Sigmoid diverticulosis. No diverticulitis or bowel obstruction. Please note that all CT scans at this facility use dose modulation, iterative reconstruction, and/or weight-based dosing when appropriate to reduce radiation dose to as low as reasonably achievable. Dictated by David Elkins MD @ 03/30/2025 9:33:03 AM (Electronically Signed)
[2025-03-29 13:12] LABS: Creatinine* 0.9 mg/dL (0.5-1.5); Estimated Glomerular Filt Rate 65 ml/min
== END 2025-03-29 12:39 | disposition home or self-care (01) ==
PROVIDERS: PCP Family Medicine; Visit Provider Internal Medicine
DX: R10.84 Generalized abdominal pain (principal); K76.89 Other specified diseases of liver; R91.8 Other nonspecific abnormal finding of lung field; K57.30 Diverticulosis of large intestine without perforation or abscess without bleeding
CPT/HCPCS: 36415; 74177; 82565; Q9967